=== PATIENT | female | born 1970 | race Two or more races ===

== ENCOUNTER 2019-05-06 16:01 | Emergency (ER) | payer SELFPAY ==
[2019-05-06] MEDS ORDERED: LIDOCAINE 4%/TETRACAINE 0.5%/EPI 0.18% 5 ML TOPICAL SOLN TOP ONE (18:09)
[2019-05-06] MEDS ORDERED: DIPH/PERTUSS(ACELL)/TETANUS VAC/PF 0.5 ML SYR (>=10YO) IM ONE (18:09)
--- NOTE | 2019-05-06 18:13 | ER Document Report ---
HPI - HPI Time Seen by Provider: 05/06/19 17:55 Pain Level: 5 Context: Patient is a 49-year-old female who presents emergency department with a chief complaint of fall. Patient reports around 3 PM this afternoon she tripped over a concrete step in the [employer] parking lot causing her to fall forward. Patient reports as she fell she did strike the right side of her face on the concrete. Patient denies loss of consciousness or vomiting afterwards. Patient reports her tetanus shot is not up-to-date. Patient also reports having abrasions to the right fifth finger and left knee. Patient reports she has able to ambulate appropriately and without any distress. Patient also reports having a small laceration to the right upper lip that was initially bleeding significantly but has now stopped. - CONSTITUTIONAL Constitutional: DENIES: Fever, Chills - EENT EENT: DENIES: Sore Throat, Ear Pain, Eye problems - NEURO Neurology: DENIES: Headache, Weakness, Vision blurred, Dizzinesss / Vertigo - CARDIOVASCULAR Cardiovascular: DENIES: Chest pain - RESPIRATORY Respiratory: DENIES: Trouble Breathing, Coughing - GASTROINTESTINAL Gastrointestinal: DENIES: Abdominal Pain, Black / Bloody Stools - URINARY Urinary: DENIES: Dysuria, Urgency, Frequency - REPRODUCTIVE Reproductive: DENIES: : - MUSCULOSKELETAL Musculoskeletal: DENIES: Extremity pain Past Medical History - General Information source: Patient - Social History Smoking Status: Never Smoker Chew tobacco use (# tins/day): No Frequency of alcohol use: None Drug Abuse: None Lives with: Family Family History: None Patient has suicidal ideation: No Patient has homicidal ideation: No - Past Medical History Cardiac Medical History: Reports: None Pulmonary Medical History: Reports: None EENT Medical History: Reports: None Neurological Medical History: Reports: None Endocrine Medical History: Reports: None Renal/ Medical History: Reports: None Malignancy Medical History: Reports: None GI Medical History: Reports: None Musculoskeletal Medical History: Reports None Skin Medical History: Reports None Psychiatric Medical History: Reports: None Traumatic Medical History: Reports: None Infectious Medical History: Reports: None Surgical Hx: Negative - Immunizations Hx Diphtheria, Pertussis, Tetanus Vaccination: - unknown Vertical Provider Document - CONSTITUTIONAL Agree With Documented VS: Yes Exam Limitations: No Limitations General Appearance: No Apparent Distress - INFECTION CONTROL TRAVEL OUTSIDE OF THE [place] IN LAST 30 DAYS: No - HEENT HEENT: Normocephalic, PERRLA Mouth Diagram: 1 - 1/2 cm laceration to right upper lip, + edema, no active bleeding Notes: + edema noted above the right zygomatic bone with tenderness to palpation. Positive ecchymosis. No crepitus with palpation. - NECK Neck: Normal Inspection - RESPIRATORY Respiratory: Breath Sounds Normal, No Respiratory Distress - CARDIOVASCULAR Cardiovascular: Regular Rate, Regular Rhythm - GI/ABDOMEN Gastrointestinal: Abdomen Soft, Abdomen Non-Tender, Normal Bowel Sounds - MUSCULOSKELETAL/EXTREMETIES Musculoskeletal/Extremeties: FROM, Non-Tender - NEURO Level of Consciousness: Awake, Alert, Appropriate - DERM Integumentary: Warm, Dry, No Rash Course - Vital Signs Vital signs: Temp Pulse Resp BP Pulse Ox 98.2 F 81 16 152/92 H 97 05/06/19 16:10 05/06/19 16:10 05/06/19 16:10 05/06/19 16:10 05/06/19 16:10 - Diagnostic Test Radiology reviewed: Reports reviewed Radiology results interpreted by me: 05/06/19 19:17 Facial Bones X-Ray 05/06/19 18:09 IMPRESSION: NO FOREIGN BODY OR FRACTURE OF THE FACIAL BONES. Procedures - Laceration/Wound Repair Right Upper Face Time completed: 19:10 Wound length (cm): 1 Wound's Depth, Shape: Superficial, Linear Laceration pre-procedure: Sterile PPE donned, Sterile drapes applied Anesthetic type: Other - LET Wound explored: Clean Irrigated w/ Saline (mLs): 20 Wound Repaired With: Sutures Suture Size/Type: 6:0, Ethilon Number of Sutures: 1 Post-procedure NV exam normal: Yes Complications: No Mouth/Teeth picture: 1 - 1 suture placed Discharge - Discharge Clinical Impression: Head injury due to trauma Qualifiers: Encounter type: initial encounter Qualified Code(s): S09.90XA - Unspecified injury of head, initial encounter Facial injury Qualifiers: Encounter type: initial encounter Qualified Code(s): S09.93XA - Unspecified injury of face, initial encounter Lip laceration Qualifiers: Encounter type: initial encounter Qualified Code(s): S01.511A - Laceration without foreign body of lip, initial encounter Condition: Stable Disposition: HOME, SELF-CARE Additional Instructions: *Today was seen in the emergency department after a fall. We did obtain an x- ray of your face which did not show any acute bony abnormality such as a fracture. Your lip laceration did require 1 suture. This does need to be removed within the next 3 to 5 days. You can return to the emergency department to have this removed. Please monitor for signs of swelling, redness, drainage, increased tenderness. Do expect some swelling to your face and bruising. If your lip starts to look infected please return to the emergency department for reevaluation sooner than 3 to 5 days. Take Tylenol or ibuprofen as needed for pain. *You may have some swelling noted that this is normal. Please use ice packs to the lip and right facial area. LACERATION CARE: Your laceration has been sutured to keep the skin edges aligned during h ealing. The time of suture removal depends on the nature and location of your cut. Please follow the care instructions the doctor has outlined for you and return for further care, according to the schedule you've been given. Keep the wound and dressing clean. Unless you were told otherwise, you may shower daily, blotting the wound dry with a clean, unused towel. At other times, If the dressing gets wet or blood soaked, remove it and blot the wound dry, then reapply a new dressing. Unless you were instructed otherwise, dressings should be changed at least daily. If any signs of infection occur (swelling, redness, drainage, increasing tenderness, red streaks, tender lumps in the armpit or groin above the laceration, or fever), see the doctor immediately. TETANUS IMMUNIZATION GIVEN: You have been given an immunization against tetanus. Please record this in your records. In general, a booster is needed only once every 10 years. The tetanus shot protects against tetanus or "lockjaw," which is a complication of certain wound infections (the tetanus shot cannot protect against the actual infection). The immunization site may become warm and red due to local reaction. If this occurs, apply warm compresses and take aspirin or ibuprofen to reduce inflammation and discomfort. Return for evaluation if the reaction becomes severe. FOLLOW-UP CARE: Your sutures should be removed in __3-5___ days. To facilitate a timely removal of your sutures, you may return to the Emergency Department at [facility]. You do not need to call for an appointment, but the best time to come in for suture removal is early in the morning. If you have been referred to another physician for follow-up care, call that physicians office for an appointment as you were instructed. If you experience a significant change in your laceration, or if you are concerned there may be an infection (swelling, redness, drainage, increasing tenderness, red streaks, tender lumps in the armpit or groin above the laceration, or fever), return to the Emergency Department immediately re-evaluation. Referrals: ANA AMARO MD [Primary Care Provider] - Follow up as needed
--- NOTE | 2019-05-06 18:58 | RADIOLOGY REPORT (SQ) ---
EXAM DESCRIPTION: FACIAL BONES COMPLETED DATE/TIME: 05/06/2019 6:40 pm REASON FOR STUDY: fall, right facial pain COMPARISON: None. NUMBER OF VIEWS: Three view. TECHNIQUE: Images of the facial bones acquired. LIMITATIONS: None. FINDINGS: ORBITS: No fracture. No foreign body. SINUSES: No mucosal thickening. No air fluid levels. FACIAL BONES: No fracture. OTHER: No other significant finding. IMPRESSION: NO FOREIGN BODY OR FRACTURE OF THE FACIAL BONES. TECHNICAL DOCUMENTATION: JOB ID: [id number] [employer]- All Rights Reserved Reading location - IP/workstation name: [email or web address]
[2019-05-06] MEDS ORDERED: ACETAMINOPHEN 325 MG TABLET PO ONE (19:18)
[2019-05-06 19:23] VITALS: BP 144/90
== END 2019-05-06 19:27 | disposition home or self-care (01) ==
LOC: ER 16:01
DX: S09.90XA Unspecified injury of head, initial encounter (principal); S09.93XA Unspecified injury of face, initial encounter; S01.511A Laceration without foreign body of lip, initial encounter; S60.416A Abrasion of right little finger, initial encounter; S80.212A Abrasion, left knee, initial encounter; W01.198A Fall on same level from slipping, tripping and stumbling with subsequent striking against other object, initial encounter; Y92.481 Parking lot as the place of occurrence of the external cause; Z23 Encounter for immunization
CPT/HCPCS: 99283; 90471; 70150; 90715; 12011; J3490

== ENCOUNTER 2019-05-14 15:31 | Emergency (ER) | payer SELFPAY | END 2019-05-14 15:42 | disposition left against medical advice (07) | LOC: ER 15:31 | DX: Z53.21 Procedure and treatment not carried out due to patient leaving prior to being seen by health care provider (principal); K13.0 Diseases of lips ==